=== PATIENT | female | born 2005 | race Caucasian/White ===

== ENCOUNTER 2025-01-27 12:45 | Outpatient (CLI) | payer BC | END 2025-01-27 12:46 | disposition home or self-care (01) | LOC: ULT 12:45 | PROVIDERS: ATTEND Family Medicine | DX: E01.0 Iodine-deficiency related diffuse (endemic) goiter (principal); R93.89 Abnormal findings on diagnostic imaging of other specified body structures | CPT/HCPCS: 76536 ==